=== PATIENT | female | born 1960 | race Caucasian/White ===

== ENCOUNTER 2017-07-16 20:28 | Emergency (ER) | payer BC ==
--- NOTE | 2017-07-17 00:31 | ER ---
DATE SEEN: 07/16/2017 REASON FOR VISIT: Pain in ear. HISTORY OF PRESENT ILLNESS: A 56-year-old female, complaining of right ear pain. This started a few days ago, got worse today. Not associated with any hearing loss, but she complains that it makes crackling noises. No trauma. She does not wear earphones and has not gone swimming for more than a month. REVIEW OF SYSTEMS: No cold symptoms. No sore throat or fever. ALLERGIES: Sulfa. PHYSICAL EXAMINATION: GENERAL: Nontoxic. VITAL SIGNS: Blood pressure is 146/67, pulse is 57, temperature 97.4. EARS: External ears are normal. There is tenderness on the left right tragus. Canal is red and inflamed, and there is some wax. TM is intact and pearly hernandez. Normal landmarks. NECK: Supple. No lymphadenopathy. IMPRESSION: Otalgia, right ear. PLAN: I suspect otitis externa. I will start treatment with Cortisporin drops 2 drops 3 times a day to the right ear, ibuprofen p.r.n. Time seen was 2045 hours. /[id number] ESTUARDO/TEAGAN
== END 2017-07-16 21:04 | disposition home or self-care (01) ==
LOC: FB.ED 20:28
DX: H92.01 Otalgia, right ear (principal); Z88.2 Allergy status to sulfonamides
CPT/HCPCS: 99282

== ENCOUNTER 2022-12-29 06:48 | Day surgery (SDC) | payer BC ==
[2022-12-29] MEDS ORDERED: Lidocaine 2% 5 ML SDV IV ONE (06:49)
[2022-12-29] MEDS ORDERED: Propofol 200 MG/20 ML SDV IV ONE (06:49)
[2022-12-29] MEDS ORDERED: Ondansetron 4 MG/2 ML SDV IVPUSH ONE (06:49)
[2022-12-29] MEDS ORDERED: Lactated Ringers 1,000 ML IV SCH (07:00)
[2022-12-29] MEDS ORDERED: Sodium Chloride 0.9% 10 ML Syringe FLUSH PRN (07:00)
[2022-12-29] MEDS ORDERED: Simethicone Drops 40 MG/0.6 ML 30 ML Bottle ONE (08:19)
== END 2022-12-29 10:06 | disposition home or self-care (01) ==
LOC: FB.SDS 06:48
PROVIDERS: ATTEND Surgery
DX: Z12.11 Encounter for screening for malignant neoplasm of colon (principal); K63.5 Polyp of colon; K57.30 Diverticulosis of large intestine without perforation or abscess without bleeding; Z88.2 Allergy status to sulfonamides
CPT/HCPCS: 00812; 45380; 88305; A9270; J2405; J2704; J7120